=== PATIENT | female | born 1970 | race Caucasian/White ===

== ENCOUNTER 2018-09-28 19:44 | Emergency (ER) | payer OTHER, MEDICAID | END 2018-09-28 21:23 | disposition home or self-care (01) | LOC: FTE 19:44 | DX: S31.823A Puncture wound without foreign body of left buttock, initial encounter (principal); S31.813A Puncture wound without foreign body of right buttock, initial encounter; W54.0XXA Bitten by dog, initial encounter; Y92.9 Unspecified place or not applicable | CPT/HCPCS: 99283; Z7502 ==

== ENCOUNTER 2019-07-13 15:22 | Inpatient (IN) | payer OTHER ==
[2019-07-13 16:27] LABS: ABNORMAL IP MESSAGE 1; HEMATOCRIT 15.3 % (37.0-47.0); MEAN CORPUSCULAR HEMOGLOBIN 16.8 pg (29.0-33.0); MEAN CORPUSCULAR HGB CONC 25.5 g/dl (32.0-37.0); MEAN CORPUSCULAR VOLUME 65.9 fl (82.0-101.0); MEAN PLATELET VOLUME 9.7 fl (7.4-10.4); NUCLEATED RED BLOOD CELLS% 1.5 /100WBC (0.0-0.0); PLATELET COUNT 336 10^3/UL (140-415); RED BLOOD COUNT 2.32 10^6/ul (4.20-5.40); RED CELL DISTRIBUTION WIDTH 19.6 % (11.5-14.5)
[2019-07-13 16:33] LABS: POSITIVE DIFF @See below
[2019-07-13 16:34] LABS: ADD MAN DIFF? YES; HEMOGLOBIN 3.9 g/dl (12.0-16.0)
[2019-07-13 16:44] LABS: CARBON DIOXIDE 24 mmol/L (21-31); CHLORIDE 106 mmol/L (97-110); POTASSIUM 4.2 mmol/L (3.5-5.1); SODIUM 139 mmol/L (135-144)
[2019-07-13] MEDS: SOD CHLORIDE 0.9% 0 ML IV (16:44)
[2019-07-13 16:45] LABS: ANION GAP 9 (5-13); BLOOD UREA NITROGEN 16 mg/dl (7-20); CALCIUM 8.3 mg/dl (8.4-10.2); Estimated GFR > 60 mL/min (>60); GLUCOSE 105 mg/dl (70-220)
[2019-07-13 17:17] LABS: ANISOCYTOSIS 3+ (0-0); BAND NEUTROPHILS % (M) 1 % (0-4); HYPOCHROMASIA 3+ (0-0); LYMPHOCYTES #M 4.5 10^3/ul (0.8-2.9); LYMPHOCYTES % (M) 57 % (15-51); MICROCYTOSIS 3+ (0-0); MONOCYTE #M 0.5 10^3/ul (0.3-0.9); MONOCYTES % (M) 7 % (0-11); PLATELET ESTIMATE NORMAL; POIKILOCYTOSIS 2+ (0-0); POLYCHROMASIA 1+ (0-0); SEG NEUT #M 2.8 10^3/ul (1.6-7.5); SEGMENTED NEUTROPHILS (M) % 35 % (39-77); SMUDGE%M 1 % (0-0); TEAR DROP CELLS 1+ (0-0)
[2019-07-13] MEDS ORDERED: NACL 0.9% 3 ML SYG IV (17:30)
[2019-07-13] MEDS ORDERED: HYDROCODONE/APAP (5/325) TAB PO (17:30)
[2019-07-13] MEDS ORDERED: MAGNESIUM HYDROXIDE 30ML CUP PO (17:30)
[2019-07-13] MEDS ORDERED: DOCUSATE SODIUM 100 MG CAP PO (17:30)
[2019-07-13] MEDS ORDERED: ONDANSETRON 4 MG INJ IV ×2 (17:30→18:00)
[2019-07-13] MEDS ORDERED: ACETAMINOPHEN 325 MG TAB PO (18:00)
[2019-07-13 18:54] LABS: IRON 18 ug/dl (35-150)
[2019-07-13 18:55] LABS: CANCER ANTIGEN 125 8.2 U/ml (0.0-35.0)
[2019-07-13 19:03] LABS: % IRON SATURATION 4 % SAT (22-52); TOTAL IRON BINDING CAPACITY 438 ug/dl (241-421)
[2019-07-14] MEDS: DEXTROSE 5%-0.45% NACL 1,000 ML IV ×4 (03:20→13:20)
[2019-07-14 08:31] LABS: ADD MAN DIFF? NO
[2019-07-14 08:37] LABS: ABNORMAL IP MESSAGE 1; BASOPHILS % 0.4 % (0.0-2.0); EOSINOPHILS # 0.1 10^3/ul (0.0-0.5); EOSINOPHILS % 0.7 % (0.0-7.0); LYMPHOCYTES # 1.4 10^3/ul (0.8-2.9); LYMPHOCYTES % 20.7 % (15.0-51.0); MEAN CORPUSCULAR HEMOGLOBIN 20.7 pg (29.0-33.0); MEAN CORPUSCULAR HGB CONC 28.6 g/dl (32.0-37.0); MEAN CORPUSCULAR VOLUME 72.4 fl (82.0-101.0); MEAN PLATELET VOLUME 9.8 fl (7.4-10.4); MONOCYTE # 0.5 10^3/ul (0.3-0.9); NEUTROPHIL # 4.8 10^3/ul (1.6-7.5); NUCLEATED RED BLOOD CELLS # 0.2 10^3/ul (0.0-0.0); NUCLEATED RED BLOOD CELLS% 2.5 /100WBC (0.0-0.0); PLATELET COUNT 288 10^3/UL (140-415); RED BLOOD COUNT 3.04 10^6/ul (4.20-5.40); RED CELL DISTRIBUTION WIDTH 22.7 % (11.5-14.5)
[2019-07-14 08:37] LABS: WHITE BLOOD COUNT 6.9 10^3/ul (4.8-10.8)
[2019-07-14 08:46] LABS: HEMOGLOBIN 6.3 g/dl (12.0-16.0); POSITIVE DIFF @See below
[2019-07-14 08:59] LABS: ANION GAP 6 (5-13); BLOOD UREA NITROGEN 14 mg/dl (7-20); CALCIUM 7.9 mg/dl (8.4-10.2); CARBON DIOXIDE 26 mmol/L (21-31); CHLORIDE 107 mmol/L (97-110); CREATININE 0.66 mg/dl (0.44-1.00); Estimated GFR > 60 mL/min (>60); GLUCOSE 91 mg/dl (70-220); POTASSIUM 4.6 mmol/L (3.5-5.1); SODIUM 139 mmol/L (135-144)
[2019-07-14] MEDS: SOD FERRIC GLUC COMPLX 125 MG in SOD CHLORIDE 0.9% 100 ML IVPB (23:18)
[2019-07-15 00:38] LABS: ADD MAN DIFF? NO
[2019-07-15 00:39] LABS: WHITE BLOOD COUNT 7.4 10^3/ul (4.8-10.8)
[2019-07-15 00:39] LABS: ABNORMAL IP MESSAGE 1; BASOPHILS % 0.5 % (0.0-2.0); EOSINOPHILS # 0.1 10^3/ul (0.0-0.5); EOSINOPHILS % 0.9 % (0.0-7.0); HEMATOCRIT 24.8 % (37.0-47.0); HEMOGLOBIN 7.4 g/dl (12.0-16.0); LYMPHOCYTES # 1.7 10^3/ul (0.8-2.9); LYMPHOCYTES % 23.4 % (15.0-51.0); MEAN CORPUSCULAR HEMOGLOBIN 22.1 pg (29.0-33.0); MEAN CORPUSCULAR HGB CONC 29.8 g/dl (32.0-37.0); MEAN PLATELET VOLUME 9.3 fl (7.4-10.4); MONOCYTE # 0.5 10^3/ul (0.3-0.9); MONOCYTES % 6.3 % (0.0-11.0); NEUTROPHILS % 67.3 % (39.0-77.0); NUCLEATED RED BLOOD CELLS # 0.2 10^3/ul (0.0-0.0); NUCLEATED RED BLOOD CELLS% 2.6 /100WBC (0.0-0.0); PLATELET COUNT 269 10^3/UL (140-415); RED BLOOD COUNT 3.35 10^6/ul (4.20-5.40); RED CELL DISTRIBUTION WIDTH 22.9 % (11.5-14.5)
[2019-07-15 00:40] LABS: POSITIVE DIFF @See below
[2019-07-15] MEDS: ACETAMINOPHEN 325 MG TAB PO (02:40)
[2019-07-15 03:05] LABS: IMMEDIATE SPIN CROSSMATCH 1 6
[2019-07-15] MEDS: DEXTROSE 5%-0.45% NACL 1,000 ML IV ×2 (06:03→08:31)
[2019-07-15] MEDS: FUROSEMIDE 20 MG TAB PO (06:29)
[2019-07-15 08:20] LABS: ADD MAN DIFF? NO
[2019-07-15 08:27] LABS: WHITE BLOOD COUNT 8.4 10^3/ul (4.8-10.8)
[2019-07-15 08:27] LABS: ABNORMAL IP MESSAGE 1; BASOPHIL # 0.1 10^3/ul (0.0-0.1); BASOPHILS % 0.6 % (0.0-2.0); EOSINOPHILS # 0.1 10^3/ul (0.0-0.5); EOSINOPHILS % 1.2 % (0.0-7.0); HEMATOCRIT 27.4 % (37.0-47.0); HEMOGLOBIN 8.3 g/dl (12.0-16.0); LYMPHOCYTES # 1.3 10^3/ul (0.8-2.9); LYMPHOCYTES % 15.2 % (15.0-51.0); MEAN CORPUSCULAR HEMOGLOBIN 22.9 pg (29.0-33.0); MEAN CORPUSCULAR HGB CONC 30.3 g/dl (32.0-37.0); MEAN CORPUSCULAR VOLUME 75.5 fl (82.0-101.0); MEAN PLATELET VOLUME 9.7 fl (7.4-10.4); MONOCYTE # 0.6 10^3/ul (0.3-0.9); MONOCYTES % 6.8 % (0.0-11.0); NEUTROPHIL # 6.2 10^3/ul (1.6-7.5); NEUTROPHILS % 73.4 % (39.0-77.0); NUCLEATED RED BLOOD CELLS # 0.2 10^3/ul (0.0-0.0); PLATELET COUNT 272 10^3/UL (140-415); RED BLOOD COUNT 3.63 10^6/ul (4.20-5.40); RED CELL DISTRIBUTION WIDTH 22.8 % (11.5-14.5)
[2019-07-15 08:34] LABS: POSITIVE DIFF @See below
[2019-07-15 12:08] LABS: CANCER ANTIGEN 19-9 27.9 U/ml (0.0-37.0)
[2019-07-15] MEDS: SOD FERRIC GLUC COMPLX 125 MG in SOD CHLORIDE 0.9% 100 ML IVPB (14:01)
[2019-07-15] MEDS: LORAZEPAM 2 MG INJ IV (16:13)
[2019-07-15] MEDS ORDERED: MEDROXYPROGESTERONE 10 MG TAB PO (19:00)
[2019-07-15] MEDS ORDERED: MEGESTROL 40 MG TAB PO (19:00)
[2019-07-15 19:05] LABS: FREE T4 (FREE THYROXINE) 1.57 ng/dl (0.64-1.79)
[2019-07-15] MEDS: MEGESTROL 40 MG TAB PO (19:39)
[2019-07-16 05:18] LABS: ADD MAN DIFF? NO
[2019-07-16 05:25] LABS: ABNORMAL IP MESSAGE 1; BASOPHIL # 0.1 10^3/ul (0.0-0.1); BASOPHILS % 0.8 % (0.0-2.0); EOSINOPHILS # 0.2 10^3/ul (0.0-0.5); EOSINOPHILS % 1.4 % (0.0-7.0); HEMATOCRIT 29.5 % (37.0-47.0); HEMOGLOBIN 8.6 g/dl (12.0-16.0); LYMPHOCYTES % 18.6 % (15.0-51.0); MEAN CORPUSCULAR HEMOGLOBIN 22.8 pg (29.0-33.0); MEAN CORPUSCULAR HGB CONC 29.2 g/dl (32.0-37.0); MEAN CORPUSCULAR VOLUME 78.2 fl (82.0-101.0); MEAN PLATELET VOLUME 9.9 fl (7.4-10.4); MONOCYTE # 0.7 10^3/ul (0.3-0.9); MONOCYTES % 6.9 % (0.0-11.0); NEUTROPHIL # 7.3 10^3/ul (1.6-7.5); NEUTROPHILS % 69.5 % (39.0-77.0); NUCLEATED RED BLOOD CELLS # 0.3 10^3/ul (0.0-0.0); NUCLEATED RED BLOOD CELLS% 2.5 /100WBC (0.0-0.0); PLATELET COUNT 285 10^3/UL (140-415); RED BLOOD COUNT 3.77 10^6/ul (4.20-5.40); RED CELL DISTRIBUTION WIDTH 24.8 % (11.5-14.5)
[2019-07-16 05:25] LABS: WHITE BLOOD COUNT 10.5 10^3/ul (4.8-10.8)
[2019-07-16 05:38] LABS: POSITIVE DIFF @See below
[2019-07-16] MEDS: ACETAMINOPHEN 325 MG TAB PO (07:59)
[2019-07-16] MEDS: MEGESTROL 40 MG TAB PO (08:52)
[2019-07-16] MEDS: SOD FERRIC GLUC COMPLX 125 MG in SOD CHLORIDE 0.9% 100 ML IVPB (12:15)
== END 2019-07-16 13:17 | disposition home or self-care (01) | DRG 812 ==
LOC: MS1 07-16 04:11 → E/R 15:22 → 6WM 17:50
PROC: 30233N1 Transfusion of Nonautologous Red Blood Cells into Peripheral Vein, Percutaneous Approach (ICD-10-PCS; principal; 2019-07-13)
DX: D62 Acute posthemorrhagic anemia (principal); N83.201 Unspecified ovarian cyst, right side; D25.9 Leiomyoma of uterus, unspecified; N92.4 Excessive bleeding in the premenopausal period; I10 Essential (primary) hypertension
CPT/HCPCS: 36430; 72198; 74183; 76856; 80048; 83540; 83735; 84439; 84443; 84703; 85025; 86301; 86304; 86644; 86850; 86900; 86901; 86920; 99285-25